=== PATIENT | female | born 1980 ===

== ENCOUNTER 2018-12-15 12:13 | Observation (INO) ==
[2018-12-15] MEDS ORDERED: ZIPRASIDONE 20 MG/1 ML VIAL IM ONE (15:00)
[2018-12-15] MEDS: DEXTROSE 5% NACL 0.45% 1,000 ML IV SCH (15:19)
[2018-12-15] MEDS ORDERED: ONDANSETRON 4 MG/2 ML VIAL IM ONE (17:41)
[2018-12-15 19:15] LABS: Basophils % 0.1 % (0.0-0.8); Eosinophils # 0.1 10*3/uL (0.0-0.87); Eosinophils % 0.7 % (0.00-10.9); Hematocrit 38.7 VOL% (35.7-47.0); Immature Granulocytes % 0.2 %; Immature Granulocytes Absolute 0.02 #; Lymphocytes # 1.7 10*3/uL (1.4-4.0); Mean Corpuscular HGB Conc 33.6 GM/DL (32-36); Mean Corpuscular Volume 95.6 FL (87-102); Mean Platelet Volume 9.2 FL (9.6-12.0); Monocytes % 7.1 % (1.7-12.7); Neutrophils % 71.9 % (38.7-73.9); Platelet Count 234 T/CUMM (130-400); Red Blood Count 4.05 MC/CUMM (3.8-5.5); Red Cell Distribution Width 12.5 % (9.3-17.3); White Blood Count 8.3 T/CUMM (4-12)
[2018-12-15 19:37] LABS: Alanine Aminotransferase 20 U/L (13-56); Albumin 3.6 G/DL (3.4-5.0); Alkaline Phosphatase 69 U/L (45-117); Aspartate Amino Transferase 11 U/L (0-37); Bilirubin,Direct < 0.100 MG/DL (0.0-0.20); Bilirubin,Indirect 0.3 MG/DL (0.0-1.0); Bilirubin,Total < 0.39 MG/DL (0.2-1.0); Blood Urea Nitrogen 12 MG/DL (7-18); Calcium 8.8 MG/DL (8.5-10.1); Estimated Glom Filtration Rate 116 ML/MIN; Glucose 95 MG/DL (74-106); Osmolality,Calculated 278.4 MOS/KG (273-304); Total Protein 7.1 G/DL (6.4-8.3)
[2018-12-15] MEDS ORDERED: ACETAMINOPHEN 325 MG TABLET PO PRN (20:21)
[2018-12-15] MEDS ORDERED: ONDANSETRON 4 MG/2 ML VIAL IV PRN (20:21)
[2018-12-15] MEDS ORDERED: SOLIFENACIN 5 MG TABLET PO SCH (21:00)
[2018-12-16 00:30] LABS: Apearance,Urine CLEAR (Clear); Bilirubin,Urine Negative (Negative); Blood, Urine Negative (Negative); Glucose,Urine (UA) Negative (Negative); Ketones,Urine Negative (Negative); Mucus,Urine Occasional /LPF (Occasional); Nitrite,Urine Negative (Negative); Protein,Urine Negative; RBC,Urine 1 /HPF (0-4); Squamous Epithelial Cell,Urine Occasional /HPF (0-10); Urine Color Yellow (Yellow); Urine Specific Gravity 1.009 (1.001-1.035); Urine Urobilinogen < 2.0 EU/DL (0.2-1.0); WBC,Urine 2 /HPF (0-6)
[2018-12-16] MEDS: DEXTROSE 5% NACL 0.45% 1,000 ML IV SCH ×2 (01:47→10:36)
[2018-12-16 08:29] VITALS: BP 130/78
== END 2018-12-16 10:45 | disposition home or self-care (01) ==
LOC: N.2E
PROVIDERS: ADMIT Psychiatry & Neurology Neurology; ATTEND Psychiatry & Neurology Neurology